=== PATIENT | female | born 1995 | race Two or more races ===

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

== ENCOUNTER 2023-08-01 19:30 | Emergency (ER) | payer OTHER ==
[~2023-08-01] VITALS: Ht 167.6 cm; Wt 77.1 kg
[2023-08-01 19:32] VITALS: TEMP 98.4
[2023-08-01] MEDS ORDERED: KETOROLAC TROMETHAMINE INJ 30 MG/ML VIAL ONE (20:02)
[2023-08-01] MEDS: KETOROLAC TROMETHAMINE INJ 30 MG/ML VIAL IM ONE (20:09)
[2023-08-01 20:31] VITALS: BP 115/67; O2SAT 98
[2023-08-01] MEDS ORDERED: NAPR-1009 PO (20:33)
[2023-08-01] MEDS ORDERED: CAPS1ADH5 TP (20:33)
[2023-08-01] MEDS ORDERED: HYDROCODONE/APAP 5/325MG TABLET ONE (20:43)
[2023-08-01] MEDS: HYDROCODONE/APAP 5/325MG TABLET PO ONE (20:48)
== END 2023-08-01 21:18 | disposition home or self-care (01) ==
LOC: ER 19:37
DX: M54.50 Low back pain, unspecified (principal); Z87.19 Personal history of other diseases of the digestive system; Z87.448 Personal history of other diseases of urinary system
CPT/HCPCS: 99283; 96372; J1885